=== PATIENT | male | born 1945 | race Caucasian/White ===

== ENCOUNTER 2017-10-31 08:40 | Outpatient (CLI) | payer MEDICARE, OTHER ==
--- NOTE | 2017-10-31 17:16 | CT Report ---
Reason: CHRONIC SINUS DRAINAGE AND COUGH Procedure Date: 10/31/2017 Accession Number: [id number] / [id number] Procedure: CT - Sinuses CPT Code: FULL RESULT: EXAM: CT SINUS EXAM DATE: 10/31/2017 09:53 AM. HISTORY: COMPARISONS: None. TECHNIQUE: Routine multi-axial CT imaging performed through the sinuses. Iodinated IV contrast: None. Reconstructions: Coronal. In accordance with CT protocol optimization, one or more of the following dose reduction techniques were utilized for this exam: automated exposure control, adjustment of mA and/or KV based on patient size, or use of iterative reconstructive technique. FINDINGS: RIGHT Frontal: Normal. Ethmoid: Minimal mucosal thickening. Maxillary: Normal. Sphenoid: Normal. Drainage Pathways: The right ostiomeatal unit is opacified by frothy mucus. Of note, the ostiomeatal unit is anatomically narrow due to the arrangement of ethmoid air cells. The frontal recess and sphenoethmoidal recess are patent and normal. LEFT Frontal: Normal. Ethmoid: Mild mucosal thickening. Maxillary: Normal. Sphenoid: Normal. Drainage Pathways: The ostiomeatal unit is patent but anatomically narrow from ethmoid air cells. The frontal recess and sphenoethmoidal recess are patent and normal. Nasal Cavity: Normal. No mass or significant anatomic abnormality evident. Osseous Structures: Unremarkable. Orbits: Unremarkable. Other: None. IMPRESSION: Obstruction of the right ostiomeatal unit by frothy mucus. There is no significant opacification of the right maxillary sinus suggesting this finding is intermittent. [facility]
== END 2017-10-31 08:41 | disposition home or self-care (01) ==
LOC: DI 08:40
PROVIDERS: ATTEND Family Medicine
DX: J31.0 Chronic rhinitis (principal); R05 Cough
CPT/HCPCS: 70486

== ENCOUNTER 2018-04-09 13:53 | Outpatient (CLI) | payer MEDICARE ==
--- NOTE | 2018-04-09 14:19 | XRAY Report ---
Reason: COUGH,CHRONIC, POST NASAL DRIP Procedure Date: 04/09/2018 Accession Number: [id number] / [id number] Procedure: XR - Chest 2 View X-Ray CPT Code: 03086 FULL RESULT: EXAM: CHEST RADIOGRAPHY EXAM DATE: 04/09/2018 02:01 PM. CLINICAL HISTORY: Cough, chronic, post nasal drip. COMPARISON: None. TECHNIQUE: 2 views. FINDINGS: Lungs/Pleura: There is patchy consolidation of most of the left hemithorax. No pleural effusion is identified. No pneumothorax is seen. Mediastinum: Heart and mediastinal contours are unremarkable. Other: None. IMPRESSION: Consolidation of the left hemithorax. Repeat imaging in 3 months following resolution of the acute episode to exclude an underlying mass lesion is recommended. [facility]
== END 2018-04-09 13:54 | disposition home or self-care (01) ==
LOC: DI 13:53
PROVIDERS: ATTEND Otolaryngology
DX: J18.1 Lobar pneumonia, unspecified organism (principal); R09.82 Postnasal drip
CPT/HCPCS: 71046

== ENCOUNTER 2018-06-16 09:10 | Outpatient (CLI) | payer MEDICARE ==
[~2018-06-16 09:10] MED LIST: ALBUTEROL NEB 2.5 MG/3 ML INH ONE; ALBUTEROL NEB 2.5 MG/3 ML INH SCH
== END 2018-06-16 09:11 | disposition home or self-care (01) ==
LOC: RT 09:10
PROVIDERS: ATTEND Family Medicine
DX: R05 Cough (principal); J18.1 Lobar pneumonia, unspecified organism
CPT/HCPCS: 94060